=== PATIENT | female | born 1995 | race American Indian/Alaskan Native ===

== ENCOUNTER 2017-01-26 20:58 | Emergency (ER) | payer MEDICAID ==
[2017-01-26 21:09] VITALS: RESP 18; O2SAT 98; BMI 33.8
--- NOTE | 2017-01-26 21:30 | ED PDOC ---
Arrival/HPI - General Chief Complaint: GI Problem Time Seen by Provider: 01/26/17 21:17 Historian: Patient - History of Present Illness Narrative History of Present Illness (Text): 01/26/17 21:17 Karina Howard is a 21 year old female, whose past medical history includes anemia, who presents to the emergency department complaining of a syncopal episode. Patient states prior to arrival while in the shower she began feeling light-headed and dizzy. Patient she subsequently had a syncopal episode and found by her boyfriend in the bathroom. Patient states she then had 1 episode of vomiting and is currently experiencing some dizziness. Patient denies any fever, chills, chest pain, shortness of breath, diarrhea, neck pain, headache, or any other complaints. Time/Duration: Prior to Arrival Symptom Onset: Sudden Symptom Course: Unchanged Severity Level: Mild Activities at Onset: Light Modifying Factors (Text): None Context: Standing, Home Associated Symptoms (Text): Dizziness, vomiting Past Medical History - Provider Review Nursing Documentation Reviewed: Yes - Infectious Disease Hx of Infectious Diseases: None - Reproductive Menopause: No - Psychiatric Hx Substance Use: No - Anesthesia Hx Anesthesia: No Hx Anesthesia Reactions: No Hx Malignant Hyperthermia: No Family/Social History - Physician Review Nursing Documentation Reviewed: Yes Family/Social History: Unknown Family HX Smoking Status: Never Smoked Hx Alcohol Use: No Hx Substance Use: No Allergies/Home Meds Allergies/Adverse Reactions: Allergies No Known Allergies Allergy (Verified 01/26/17 21:09) Home Medications: Home Meds Medication Instructions Recorded Confirmed Ferrous Sulfate [Feosol] 324 mg PO DAILY 01/26/17 01/26/17 Norgestrel-Ethinyl Estradiol 1 tab PO DAILY 01/26/17 01/26/17 [[id number] Tablet] Vit No.126/Iron/Folic 1 tab PO DAILY 01/26/17 01/26/17 [Classic Tablet] Review of Systems - Review of Systems Constitutional: Normal. absent: Fevers Eyes: Normal ENT: Normal Respiratory: Normal. absent: SOB, Cough Cardiovascular: Syncope. absent: Chest Pain Gastrointestinal: Vomiting. absent: Abdominal Pain, Diarrhea Genitourinary Female: Normal Musculoskeletal: Normal. absent: Back Pain, Neck Pain Skin: Normal Neurological: Dizziness. absent: Headache Endocrine: Normal Hemo/Lymphatic: Normal Psychiatric: Normal Physical Exam Vital Signs Reviewed: Yes Vital Signs Temp Pulse Resp BP Pulse Ox 01/26/17 22:43 98.5 F 80 18 128/80 98 01/26/17 21:04 98.3 F 82 18 130/87 98 Temperature: Afebrile Blood Pressure: Normal Pulse: Regular Respiratory Rate: Normal Appearance: Positive for: Well-Appearing, Non-Toxic, Comfortable Pain Distress: None Mental Status: Positive for: Alert and Oriented X 3 - Systems Exam Head: Present: Atraumatic, Normocephalic Pupils: Present: PERRL Extroacular Muscles: Present: EOMI Conjunctiva: Present: Normal Mouth: Present: Moist Mucous Membranes Neck: Present: Normal Range of Motion Respiratory/Chest: Present: Clear to Auscultation, Good Air Exchange. No: Respiratory Distress, Accessory Muscle Use Cardiovascular: Present: Regular Rate and Rhythm, Normal S1, S2. No: Murmurs Abdomen: Present: Normal Bowel Sounds. No: Tenderness, Distention, Peritoneal Signs Back: Present: Normal Inspection Upper Extremity: Present: Normal Inspection. No: Cyanosis, Edema Lower Extremity: Present: Normal Inspection. No: Edema Neurological: Present: GCS=15, CN II-XII Intact, Speech Normal, Motor Func Grossly Intact, Normal Sensory Function, Normal Cerebellar Funct, Memory Normal Skin: Present: Warm, Dry, Normal Color. No: Rashes Psychiatric: Present: Alert, Oriented x 3, Normal Insight, Normal Concentration Medical Decision Making ED Course and Treatment: 01/26/17 21:17 Impression: 21 year old female complains of loss of consciousness, along with vomiting and dizziness. No other acute findings. Differential Diagnosis included but are not limited to: syncope Plan: -- EKG -- Labs -- Urinalysis, urine drug screen 01/26/17 21:30 EKG: Ordered, reviewed, and independently interpreted the EKG. Rate : 73 BPM Rhythm : NSR Interpretation : No ST-segment elevations or depressions, no T-wave inversions, normal intervals. Comparison : No previous EKG for comparison. 01/26/17 22:45 On reevaluation the patient feels better and is in no acute distress. I have discussed the results and plan with the patient, who expresses understanding. Patient given the opportunity to ask question, all questions were answered and there is agreement with the plan to discharge the patient home. Patient is stable for discharge. Patient was instructed to follow up with physician/clinic in 1-2 days or return if symptoms persist/worsen or new concerning symptoms arise. - Lab Interpretations Microbiology Results: Microbiology Results 01/26/17 21:40 Urine,Clean Catch Urine Culture - Final No Growth (<1,000 CFU/ML) Lab Results: 01/26/17 21:30 01/26/17 21:30 Lab Results 01/26/17 21:40: Urine Color Light red, Urine Appearance Turbid, Urine pH 6.0, Ur Specific [place] >= 1.030, Urine Protein 100 H, Urine Glucose (UA) Negative, Urine Ketones Negative, Urine Blood Large H, Urine Nitrate Negative, Urine Bilirubin Small H, Urine Urobilinogen 1.0 H, Ur Leukocyte Esterase Trace H, Urine RBC Tntc, Urine WBC 1 - 3, Ur Epithelial Cells Many, Urine Bacteria Few, Urine HCG, Qual Negative 01/26/17 21:40: Urine Opiates Screen Negative, Urine Methadone Screen Negative, Ur Barbiturates Screen Negative, Ur Phencyclidine Scrn Negative, Ur Amphetamines Screen Negative, U Benzodiazepines Scrn Negative, U Oth Cocaine Metabols Negative, U Cannabinoids Screen Negative 01/26/17 21:30: Sodium 139, Potassium 3.8, Chloride 104, Carbon Dioxide 25, Anion Gap 14, BUN 15, Creatinine 0.6, Est GFR ( Amer) > 60, Est GFR (Non- Af Amer) > 60, Random Glucose 94, Calcium 9.3, Total Bilirubin 0.6, AST 25, ALT 47, Alkaline Phosphatase 80, Troponin I < 0.01, Total Protein 7.4, Albumin 4.2, Globulin 3.2, Albumin/Globulin Ratio 1.3 01/26/17 21:30: WBC 6.9, RBC 4.05, Hgb 10.5 L, Hct 33.0 L, MCV 81.5, MCH 25.9, MCHC 31.8, RDW 18.0 H, Plt Count 224, MPV 9.9, Gran % 49.4 L, Lymph % (Auto) 41.4 H, [place] % (Auto) 7.0 H, Eos % (Auto) 1.6, Baso % (Auto) 0.6, Gran # 3.41, Lymph # 2.9, [place] # 0.5, Eos # 0.1, Baso # 0.04 01/26/17 21:16: POC Glucose (mg/dL) 95 I have reviewed the lab results: Yes - EKG Interpretation Interpreted by ED Physician: Yes Type: 12 lead EKG - Medication Orders Current Medication Orders: Discontinued Medications Sodium Chloride (Sodium Chloride 0.9%) 1,000 mls @ 1,000 mls/hr IV .Q1H IVANNA Last Admin: 01/26/17 22:27 Dose: Not Given Non-Admin Reason: Patient Refused Ondansetron HCl (Zofran Inj) 4 mg IVP STAT STA Stop: 01/26/17 22:19 Last Admin: 01/26/17 22:27 Dose: Not Given Non-Admin Reason: Patient Refused - Scribe Statement 21:17 Celi Albert training with Heidi Winters All medical record entries made by the Scribe were at my direction and personally dictated by me. I have reviewed the chart and agree that the record accurately reflects my personal performance of the history, physical exam, medical decision making, and the department course for this patient. I have also personally directed, reviewed, and agree with the discharge instructions and disposition. Disposition/Present on Arrival - Present on Arrival Any Indicators Present on Arrival: No History of DVT/PE: No History of Uncontrolled Diabetes: No Urinary Catheter: No History of Decub. Ulcer: No History Surgical Site Infection Following: None - Disposition Have Diagnosis and Disposition been Completed?: Yes Diagnosis: Vasovagal syncope Disposition: HOME/ ROUTINE Disposition Time: 22:45 Condition: GOOD Discharge Instructions (ExitCare): Syncope (ED), Syncope (DC)
[2017-01-26 21:49] LABS: BASO # 0.04 K/mm3 (0.0-2.0); BASO % 0.6 % (0.0-3.0); EOS # 0.1 (0.0-0.7); EOS % 1.6 % (1.5-5.0); GRAN # 3.41 (1.4-6.5); GRAN % 49.4 % (50.0-68.0); HEMOGLOBIN 10.5 gm/dL (12.0-16.0); LYMPH # 2.9 (1.2-3.4); LYMPH % 41.4 % (22.0-35.0); MEAN CELL VOLUME 81.5 fL (80.0-105.0); MEAN CORPUSCULAR HEMOGLOBIN 25.9 pg (25.0-35.0); MEAN CORPUSCULAR HGB CONC 31.8 g/dl (31.0-37.0); MEAN PLATELET VOLUME 9.9 fl (7.0-11.0); MONO # 0.5 (0.1-0.6); PLATELET COUNT 224 10^3/uL (120.0-450.0); RBC 4.05 10^6/uL (3.5-6.1); WHITE BLOOD COUNT 6.9 10^3/ul (4.5-11.0)
[2017-01-26 21:53] LABS: ALB/GLOB RATIO 1.3 (1.1-1.8); ALBUMIN 4.2 g/dL (3.0-4.8); ALT/SGPT 47 U/L (7-56); AST/SGOT 25 U/L (15-39); BLOOD UREA NITROGEN 15 mg/dL (7-21); CALCIUM 9.3 mg/dL (8.4-10.5); GFR AFRICAN-AMERICAN > 60; GFR NON-AFRICAN AMERICAN > 60
[2017-01-26 22:03] LABS: URINE BILIRUBIN SMALL (NEGATIVE); URINE BLOOD LARGE (NEGATIVE); URINE GLUCOSE (UA) NEGATIVE (NEGATIVE); URINE LEUKOCYTE ESTERASE TRACE Leu/uL (NEGATIVE); URINE NITRATE NEGATIVE (NEGATIVE); URINE PROTEIN 100 mg/dL (<30 mg/dL)
[2017-01-26 22:05] LABS: TROPONIN I < 0.01 ng/mL
[2017-01-26 22:08] LABS: BARBITURATES, UR NEGATIVE (NEGATIVE); BENZODIAZEPINES, UR NEGATIVE (NEGATIVE); OPIATES, UR NEGATIVE (NEGATIVE); PHENCYCLIDINE, UR NEGATIVE (NEGATIVE)
[2017-01-26 22:13] LABS: HCG,QUALITATIVE URINE NEGATIVE (NEGATIVE); URINE APPEARANCE TURBID (CLEAR); URINE COLOR LIGHT RED (YELLOW)
[2017-01-26 22:17] LABS: URINE RBC TNTC /hpf (0-2)
[2017-01-26 22:18] LABS: URINE BACTERIA FEW (NEG); URINE EPITHELIAL CELLS MANY /hpf (0-5)
[2017-01-26] MEDS ORDERED: Sodium Chloride 0.9% 1,000 ML IV SCH (22:30)
[2017-01-26 22:44] VITALS: BP 128/80; PULSE 80; TEMP 98.5
--- NOTE | 2017-01-28 09:58 | CARD ---
APPROVED REPORT EKG Measurement Heart [id number] <Conclusion> Normal sinus rhythm with sinus arrhythmia LVH by voltage
== END 2017-01-26 22:44 | disposition home or self-care (01) ==
LOC: ED 20:58
DX: R55 Syncope and collapse (principal)